=== PATIENT | female | born 1950 | race Hispanic/Latino ===

== ENCOUNTER → 2020-07-04 06:35 | Outpatient (CLI) | payer MEDICARE, MEDICAID, SELFPAY ==
--- NOTE | 2020-07-04 | DI.ECHO.S_ITS ---
[facility] +---------+ [facility] +---------+ : : [address] : : : : [id number] : : : : Phone: [phone]+ Echocardiogram Report + + :Name: SORIN HODGE Study Date: 07/04/2020 Height: 68 in : :[facility] Weight: 257 lb : : Gender: Female BSA: 2.3 m2 : :: 1950 Age: 69 yrs BP: 142/83 mmHg: :Reason For Study: ATRIAL FIBRILLATION : :Ordering Physician: SAMANTHA, : :FELI Performed By: Chanelle Camarillo : :Referring: FELI SINGH : + + Interpretation Summary The left ventricle is normal in size. The ejection fraction is estimated to be 45-50%. There is mild global hypokinesis of the left ventricle. The right ventricle is normal size. Right ventricular systolic function is at the lower limits of normal. There is mild mitral regurgitation. There is mild tricuspid regurgitation. The right ventricular systolic pressure is estimated to be at least 23 mmHg based on an estimated right atrial pressure of 3 mm Hg. The patient was in atrial fibrillation with heart rates between 85-115 bpm during the exam. Procedure: A two-dimensional transthoracic echocardiogram with color flow and Doppler was performed. The study quality was technically difficult. There is no prior echocardiogram noted for this patient. The patient was in atrial fibrillation with heart rates between 85-115 bpm during the exam. Left Ventricle: The left ventricle is normal in size. There is mild concentric left ventricular hypertrophy. There is no thrombus. The ejection fraction is estimated to be 45-50%. There is mild global hypokinesis of the left ventricle. Diastolic function could not be accurately assessed due to atrial fibrillation. Right Ventricle: The right ventricle is normal size. Right ventricular systolic function is at the lower limits of normal. Atria: The left atrium is moderately dilated. The right atrium is mild to moderately dilated. There is no Doppler evidence for an interatrial shunt. Mitral Valve: The mitral valve leaflets appear mildly thickened, but open well. There is mild mitral annular calcification. There is mild mitral regurgitation. Aortic Valve: The aortic valve is trileaflet. The aortic valve opens well. The aortic valve is slightly calcified. There is no aortic valve stenosis. There is trace aortic regurgitation. Tricuspid Valve: The tricuspid valve is normal in structure and function. The right ventricular systolic pressure is estimated to be at least 23 mmHg based on an estimated right atrial pressure of 3 mm Hg. There is mild tricuspid regurgitation. Pulmonic Valve: The pulmonic valve is not well seen, but is grossly normal. There is no pulmonic valvular regurgitation. Great Vessels: The aortic root is normal size. The dimensions of the ascending aorta are normal. The IVC is of normal diameter and collapses greater than 50% with a sniff. This suggests a low right atrial pressure of 3 mm Hg. Pericardium/ Pleura There is no pericardial effusion. There is no pleural effusion. MMode/2D Measurements & Calculations LVIDd: 3.9 cm LVOT diam: 2.0 cm LVIDs: 3.0 cm Ao root diam: 3.0 cm FS: 22.4 % asc Aorta Diam: 2.9 cm EPSS: 0.67 cm Ao Arch Diam (Prox Trans): 3.0 cm IVSd: 1.3 cm LVPWd: 1.0 cm LV peacock. diameter/BSA (cm/m^2): 1.7 LV sys. diameter/BSA (cm/m^2): 1.3 LA A2 area: 23.9 cm2 RA long axis: 6.7 cm LA A4 area: 28.6 cm2 RA area: 23.9 cm2 LA length (vol): 7.0 cm RA vol: 72.5 ml LA vol: 82.3 ml RA : 31.9 ml/m2 LA vol index: 36.2 ml/m2 IVC diam: 1.4 cm RVD1 (basal): 3.8 cm TAPSE: 1.8 cm Doppler Measurements & Calculations Ao V2 max: 122.5 cm/sec LVOT Max Ryan: 100.6 cm/sec Ao V2 mean: 88.9 cm/sec LV V1 max P.1 mmHg Ao max P.0 mmHg LV V1 VTI: 22.5 cm Ao mean P.6 mmHg DAWOOD(I,D): 2.6 cm2 Ao V2 VTI: 26.3 cm DAWOOD(V,D): 2.5 cm2 sev ratio: 0.86 DAWOOD indexed to BSA (cm^2/m^2): 1.2 MV E max ryan: 109.4 cm/sec TR max ryan: 223.8 cm/sec MV A max ryan: 1.6 cm/sec TR max P.0 mmHg MV E/A: 67.5 PA V2 max: 61.4 cm/sec Med Peak E' Ryan: 7.8 cm/sec PA V2 mean: 41.6 cm/sec E/E' med: 14.0 PA mean P.81 mmHg Lat Peak E' Ryan: 15.6 cm/sec PA pr(Accel): 31.0 mmHg E/E' lat: 7.0 E/e' average: 10.5 MV dec time: 0.20 sec SV(LVOT): 69.4 ml Reading Physician:07:29 PM
== END ==
PROVIDERS: PCP Family Medicine; Referring Provider Internal Medicine Cardiovascular Disease; Visit Provider Internal Medicine Cardiovascular Disease
DX: I08.1 Rheumatic disorders of both mitral and tricuspid valves (principal); I48.20 Chronic atrial fibrillation, unspecified; R60.0 Localized edema
CPT/HCPCS: 93306

== ENCOUNTER → 2020-12-21 13:15 | Outpatient (CLI) | payer MEDICARE, MEDICAID, SELFPAY ==
--- NOTE | 2020-12-21 | DI.RAD.S_ITS ---
PROCEDURE: XR CERVICAL SPINE 1V INDICATIONS: SPINAL STENOSIS, CERVICAL REGION TECHNIQUE: Single lateral view of the cervical spine acquired. COMPARISON: None. FINDINGS: Bones: No fractures or dislocations to the T1 level. No suspicious bony lesions. Prior anterior cervical fusion plate with interbody disc spacer noted at C5-C6, maintaining normal alignment. Soft tissues: No prevertebral soft tissue swelling. IMPRESSION: Normal alignment after anterior fusion plate placement and intervertebral disc spacer at C5-6. Dictated by: Arun Olson M.D. on 12/21/2020 at 14:47 Approved by: Arun Olson M.D. on 12/21/2020 at 14:48
== END ==
PROVIDERS: PCP Family Medicine; Referring Provider Physician Assistant Medical; Visit Provider Physician Assistant Medical
DX: M48.02 Spinal stenosis, cervical region (principal); M50.022 Cervical disc disorder at C5-C6 level with myelopathy; Z98.1 Arthrodesis status
CPT/HCPCS: 72020

== ENCOUNTER → 2021-02-15 09:35 | Outpatient (CLI) | payer MEDICARE, MEDICAID, SELFPAY ==
--- NOTE | 2021-02-15 09:40 | DI.RAD.S_ITS ---
PROCEDURE: XR CERVICAL SPINE 2V OR 3V INDICATIONS: after surgery check TECHNIQUE: For view(s) of the cervical spine were acquired. COMPARISON: [facility], CR, XR CERVICAL SPINE 1V, 12/21/2020, 13:25. FINDINGS: Bones: No fractures or dislocations to the T1 level. The lateral masses of C1 appear intact on the odontoid view. No suspicious bony lesions. Prior cervical fusion surgery has been performed anteriorly crossing C5-C6 with an anterior fusion plate and upper and lower bilateral fixation screws. There also is an interbody disc spacer, at C5-6. Soft tissues: No prevertebral soft tissue swelling. IMPRESSION: Normal alignment established after anterior fusion procedure including interbody disc spacer device. Dictated by: Arun Olson M.D. on 02/15/2021 at 10:19 Approved by: Arun Olson M.D. on 02/15/2021 at 10:20
== END ==
PROVIDERS: PCP Family Medicine; Visit Provider Dentist Orthodontics and Dentofacial Orthopedics
DX: M48.02 Spinal stenosis, cervical region (principal); M50.022 Cervical disc disorder at C5-C6 level with myelopathy; Z98.1 Arthrodesis status
CPT/HCPCS: 72040

== ENCOUNTER → 2022-05-15 10:32 | Outpatient (CLI) | payer MEDICARE, MEDICAID, SELFPAY ==
--- NOTE | 2022-05-15 | DI.ECHO.S_ITS ---
[place] +---------+ Hospital +---------+ : : [address] : [address] : : : : [id number] : : : : Phone: [phone]---------+ Echocardiogram Report + + :Name: SORIN HODGE Study Date: 05/15/2022 Height: 67 in : :[facility] ReadingLocation: Weight: 290 lb : : Gender: Female BSA: 2.4 m2 : :: 1950 Age: 71 yrs BP: 157/116 mmHg: :Reason For Study: Atrial fibrillation : :Ordering Physician: SAMANTHA, : :FELI Performed By: Guido Link : :Referring: FELI SINGH : + + Interpretation Summary The patient was in atrial fibrillation with heart rates between 80-109 bpm during the exam. The left ventricle is normal in size. There is mild concentric left ventricular hypertrophy. Left ventricular ejection fraction is estimated to be 50 +/- 5%. Previously 45 to 50%. The right ventricle is normal in size and function. There is mild tricuspid regurgitation. Compared to the prior echo exam, there has been no change in TR severity. Right ventricular systolic pressure is estimated to be 25 mmHg plus the clinically estimated CVP which cannot be estimated on this exam. BP: 157/116 mmHg Procedure: A two-dimensional transthoracic echocardiogram with color flow and Doppler was performed. The study quality was technically adequate. Comparison is made with the echocardiogram of 07/04/2020. A contrast injection of Definity was performed to improve assessment of LV function. The patient was in atrial fibrillation with heart rates between 80-109 bpm during the exam. Left Ventricle: The left ventricle is normal in size. There is mild concentric left ventricular hypertrophy. There is no thrombus. Left ventricular ejection fraction is estimated to be 50 +/- 5%. There are no focal wall motion abnormalities. Diastolic function could not be accurately assessed due to atrial fibrillation. Right Ventricle: The right ventricle is normal in size and function. Atria: The left atrium is moderately dilated. There has been no significant change since the previous study. The right atrium is mild to moderately dilated. There has been no significant change since the previous study. The interatrial septum grossly appears intact with no obvious evidence for an atrial septal defect. Mitral Valve: There is mild mitral annular calcification. The mitral valve leaflets appear mildly thickened, but open well. There is mild mitral regurgitation. Compared to the prior echo study, there has been no change in the severity of mitral regurgitation. Aortic Valve: The aortic valve is normal in structure and function. The aortic valve is trileaflet. There is no aortic valve stenosis. There is trace aortic regurgitation. Tricuspid Valve: The tricuspid valve is normal. There is mild tricuspid regurgitation. Right ventricular systolic pressure is estimated to be 25 mmHg plus the clinically estimated CVP which cannot be estimated on this exam. Compared to the prior echo exam, there has been no change in TR severity. Pulmonic Valve: The pulmonic valve is normal in structure and function. There is no pulmonic valvular regurgitation. Great Vessels: The aortic root is normal size. The dimensions of the ascending aorta are normal. The ascending aorta could not be visualized. The inferior vena cava was not visualized. Pericardium/ Pleura There is no pericardial effusion. There is no pleural effusion. MMode/2D Measurements & Calculations LVIDd: 4.4 cm LVOT diam: 2.2 cm LVIDs: 3.1 cm Ao root diam: 2.9 cm FS: 29.5 % asc Aorta Diam: 3.1 cm IVSd: 1.3 cm LVPWd: 1.1 cm LV peacock. diameter/BSA (cm/m^2): 1.9 LV sys. diameter/BSA (cm/m^2): 1.3 LA dimension: 3.9 cm RA long axis: 6.5 cm LA A2 area: 25.5 cm2 LA A4 area: 27.0 cm2 LA length (vol): 6.9 cm LA vol: 84.2 ml LA vol index: 35.6 ml/m2 LVLs ap4: 6.1 cm TAPSE_phl: 1.9 cm Doppler Measurements & Calculations Ao V2 max: 125.0 cm/sec LVOT Max Ryan: 101.0 cm/sec Ao V2 mean: 96.0 cm/sec LV V1 max P.1 mmHg Ao max P.0 mmHg LV V1 VTI: 22.3 cm Ao mean P.0 mmHg DAWOOD(I,D): 3.4 cm2 Ao V2 VTI: 24.8 cm DAWOOD(V,D): 3.1 cm2 sev ratio: 0.90 DAWOOD indexed to BSA (cm^2/m^2): 1.4 TR max ryan: 252.0 cm/sec SV(LVOT): 84.8 ml TR max P.4 mmHg AV VR_phl: 0.81 DAWOOD(VTI)/BSA_phl: 1.4 Reading Physician:03:09 PM
== END ==
PROVIDERS: PCP Family Medicine; Referring Provider Internal Medicine Cardiovascular Disease; Visit Provider Internal Medicine Cardiovascular Disease
DX: I48.20 Chronic atrial fibrillation, unspecified (principal); I08.1 Rheumatic disorders of both mitral and tricuspid valves
CPT/HCPCS: C8929; Q9957